=== PATIENT | female | born 1930 | race Caucasian/White ===

== ENCOUNTER → 2018-07-12 | Outpatient (CLI) | payer OTHER | LOC: M.RAD 12:46 | DX: Z12.31 Encounter for screening mammogram for malignant neoplasm of breast (principal) ==

== ENCOUNTER → 2018-07-18 | Outpatient (CLI) | payer OTHER | LOC: M.RAD 11:09 | DX: M51.36 Other intervertebral disc degeneration, lumbar region (principal); M25.551 Pain in right hip ==

== ENCOUNTER → 2019-03-08 | Outpatient (CLI) | payer OTHER | LOC: M.ULTRA 10:53 → M.MRI 13:30 | DX: G31.9 Degenerative disease of nervous system, unspecified (principal); R90.82 White matter disease, unspecified; R94.5 Abnormal results of liver function studies; M51.27 Other intervertebral disc displacement, lumbosacral region ==

== ENCOUNTER → 2019-07-18 | Outpatient (CLI) | payer OTHER | LOC: M.RAD 07-15 13:00 | DX: Z12.31 Encounter for screening mammogram for malignant neoplasm of breast (principal) ==

== ENCOUNTER → 2021-08-06 | Outpatient (CLI) | payer OTHER | LOC: M.RAD 11:00 | PROVIDERS: ATTEND Internal Medicine | DX: Z12.31 Encounter for screening mammogram for malignant neoplasm of breast (principal) ==